=== PATIENT | female | born 1985 | race Caucasian/White ===

== ENCOUNTER 2025-06-25 19:27 | Emergency (ER) | payer OTHER, SELFPAY ==
[2025-06-25] MEDS ORDERED: Bacitracin 1 PK ONE (20:07)
== END 2025-06-25 20:18 | disposition home or self-care (01) ==
LOC: MADERS 19:27
DX: S61.213A Laceration without foreign body of left middle finger without damage to nail, initial encounter (principal); S60.415A Abrasion of left ring finger, initial encounter; F17.210 Nicotine dependence, cigarettes, uncomplicated; X58.XXXA Exposure to other specified factors, initial encounter
CPT/HCPCS: 99283